=== PATIENT | female | born 1940 | race Caucasian/White ===

== ENCOUNTER 2018-12-03 18:06 | Emergency (ER) | payer SELFPAY ==
[2018-12-03 19:01] LABS: #Eosinphils 0.1 thou/uL (0.0-0.7); #Lymphocytes 1.3 thou/uL (1.20-3.40); #Monocytes 0.3 thou/uL (0.11-0.59); #Neutrophils 6.3 thou/uL (1.40-6.50); %Basophils 0.1 % (0.0-1.0); %Eosinophils 0.8 % (0.0-10.0); %Lymphocytes 16.1 % (21.0-51.0); %Monocytes 3.4 % (0.0-10.0); %Neutrophils 79.7 % (42.0-75.0); Hemoglobin 11.6 g/dL (12.0-16.0); Mean Corpuscular HGB CONC 33.2 g/dL (32.0-36.0); Mean Corpuscular Hemoglobin 26.4 pg (27.0-31.0); Mean Corpuscular Volume 79.7 fL (78.0-98.0); Mean Platelet Volume 7.9 fL (7.4-10.4); Platelet Count 250 thou/uL (130-400); RBC Distribution Width 13.1 % (11.5-14.5); Red Blood Cell (RBC) Count 4.39 mill/uL (4.20-5.40); White Blood Cell (WBC) Count 7.9 thou/uL (4.8-10.8)
[2018-12-03 19:12] LABS: ALT (SGPT) Less than 7 U/L (8-55); AST (SGOT) 9 U/L (5-34); Alkaline Phosphatase 96 U/L (40-150); Anion Gap 9 mmol/L (10-20); BUN (Urea Nitrogen) 10 mg/dL (9.8-20.1); Bilirubin, Total 0.4 mg/dL (0.2-1.2); CK (CPK) 32 U/L (29-168); Calc. Creatinine Clearance 0 mL/min (70-130); Calcium 9.3 mg/dL (7.8-10.44); Carbon Dioxide 30 mmol/L (23-31); Chloride 99 mmol/L (98-107); Estimated GFR-MDRD 78; Globulin 3.2 g/dL (2.4-3.5); Glucose 170 mg/dL (83-110); Lipase 22 U/L (8-78); Potassium 3.4 mmol/L (3.5-5.1); Protein, Total 7.2 g/dL (6.0-8.3); Sodium 135 mmol/L (136-145)
--- NOTE | 2018-12-08 12:00 | EKG ---
Test Reason : Blood Pressure : / mmHG Vent. Rate : 068 BPM Atrial Rate : 068 BPM P-R Int : 170 ms QRS Dur : 086 ms QT Int : 426 ms P-R-T Axes : 087 075 091 degrees QTc Int : 452 ms Normal sinus rhythm Normal ECG Confirmed by CYNDY HARPER, SINDHU ([id number]), film and video editor REANNA LOPEZ ([id number]) on 12/08/2018 12:00:06 PM Referred By: Confirmed By:SINDHU NAYLOR MD
== END 2018-12-03 19:39 | disposition home or self-care (01) ==
LOC: ERS 18:06
DX: I10 Essential (primary) hypertension (principal); E11.65 Type 2 diabetes mellitus with hyperglycemia; F17.210 Nicotine dependence, cigarettes, uncomplicated
CPT/HCPCS: 36415; 80053; 82550; 83690; 84484; 85025; 93005

== ENCOUNTER 2018-12-04 07:44 | Emergency (ER) | payer SELFPAY ==
[2018-12-04] MEDS ORDERED: Ondansetron PF 4 MG/2 ML Vial ONE ×3 (08:15→12:05)
[2018-12-04 08:24] LABS: #Lymphocytes 0.9 thou/uL (1.20-3.40); #Monocytes 0.2 thou/uL (0.11-0.59); #Neutrophils 8.6 thou/uL (1.40-6.50); %Basophils 0.4 % (0.0-1.0); %Eosinophils 0.4 % (0.0-10.0); %Lymphocytes 9.3 % (21.0-51.0); %Monocytes 1.9 % (0.0-10.0); Mean Corpuscular HGB CONC 33.4 g/dL (32.0-36.0); Mean Corpuscular Hemoglobin 26.3 pg (27.0-31.0); Mean Corpuscular Volume 78.8 fL (78.0-98.0); Mean Platelet Volume 8.7 fL (7.4-10.4); Platelet Count 294 thou/uL (130-400); RBC Distribution Width 13.3 % (11.5-14.5); Red Blood Cell (RBC) Count 5.32 mill/uL (4.20-5.40); White Blood Cell (WBC) Count 9.8 thou/uL (4.8-10.8)
--- NOTE | 2018-12-04 08:38 | RAD ---
FRONTAL VIEW CHEST: Date 12/04/18 No prior comparison. INDICATION: Dyspnea. FINDINGS: There is interstitial opacification of each lung without lobar consolidation or effusion. Cardiac lena houette is normal in size. There is vascular calcification. IMPRESSION: Interstitial lung disease, bilaterally, without superimposed focal consolidation. POS: C
[2018-12-04 08:54] LABS: ALT (SGPT) 8 U/L (8-55); AST (SGOT) 16 U/L (5-34); Albumin 4.8 g/dL (3.4-4.8); Alkaline Phosphatase 125 U/L (40-150); Anion Gap 16 mmol/L (10-20); BUN (Urea Nitrogen) 9 mg/dL (9.8-20.1); Bilirubin, Total 0.8 mg/dL (0.2-1.2); Calc. Creatinine Clearance 0 mL/min (70-130); Calcium 10.6 mg/dL (7.8-10.44); Carbon Dioxide 27 mmol/L (23-31); Chloride 96 mmol/L (98-107); Estimated GFR-MDRD 67; Globulin 4.5 g/dL (2.4-3.5); Glucose 276 mg/dL (83-110); Lipase 27 U/L (8-78); Potassium 3.7 mmol/L (3.5-5.1); Protein, Total 9.3 g/dL (6.0-8.3); Sodium 135 mmol/L (136-145)
[2018-12-04 12:00] LABS: Troponin I Less than 0.010 ng/mL (< 0.028)
[2018-12-04] MEDS ORDERED: Ketorolac Tromethamine 30 MG/ML VIAL ONE (12:04)
[2018-12-04] MEDS ORDERED: Promethazine HCl 25 MG/ML VIAL ONE (13:01)
[2018-12-04] MEDS ORDERED: Metoclopramide HCl 10 MG/2 ML VIAL ONE (13:01)
[2018-12-04] MEDS ORDERED: Metoclopramide HCl 10 MG TAB ONE (13:05)
--- NOTE | 2018-12-08 12:29 | EKG ---
Test Reason : SOB Blood Pressure : / mmHG Vent. Rate : 081 BPM Atrial Rate : 084 BPM P-R Int : 168 ms QRS Dur : 082 ms QT Int : 426 ms P-R-T Axes : 072 062 082 degrees QTc Int : 494 ms Normal sinus rhythm with sinus arrhythmia Prolonged QT Abnormal ECG #2 Confirmed by EDMOND BEARD DO ([id number]), food expeditor REANNA LOPEZ ([id number]) on 12/08/2018 12:29:12 PM Referred By: Confirmed By:EDMOND BEARD DO
--- NOTE | 2018-12-08 12:29 | EKG ---
Test Reason : SOB Blood Pressure : / mmHG Vent. Rate : 083 BPM Atrial Rate : 083 BPM P-R Int : 154 ms QRS Dur : 062 ms QT Int : 414 ms P-R-T Axes : 051 051 079 degrees QTc Int : 486 ms Normal sinus rhythm Nonspecific ST abnormality Abnormal ECG Confirmed by EDMOND BEARD DO ([id number]), editor book REANNA LOPEZ ([id number]) on 12/08/2018 12:28:41 PM Referred By: Confirmed By:EDMOND BEARD DO
== END 2018-12-04 14:00 | disposition home or self-care (01) ==
LOC: ERS 07:44
DX: R07.9 Chest pain, unspecified (principal); R11.2 Nausea with vomiting, unspecified; E11.9 Type 2 diabetes mellitus without complications; I10 Essential (primary) hypertension; F17.210 Nicotine dependence, cigarettes, uncomplicated
CPT/HCPCS: 36415; 71045; 80053; 83690; 84484; 85025; 93005; 96361; 96372; 96374; 96375; 96376; J1885; J2405; J2550; J2765; J8597

== ENCOUNTER 2018-12-04 19:28 | Emergency (ER) | payer SELFPAY ==
[2018-12-04 20:26] LABS: #Lymphocytes 1.1 thou/uL (1.20-3.40); #Monocytes 0.5 thou/uL (0.11-0.59); #Neutrophils 9.6 thou/uL (1.40-6.50); %Basophils 0.1 % (0.0-1.0); %Eosinophils 0.2 % (0.0-10.0); %Lymphocytes 9.9 % (21.0-51.0); %Monocytes 4.3 % (0.0-10.0); %Neutrophils 85.6 % (42.0-75.0); Mean Corpuscular HGB CONC 32.9 g/dL (32.0-36.0); Mean Corpuscular Hemoglobin 26.6 pg (27.0-31.0); Mean Platelet Volume 8.1 fL (7.4-10.4); Platelet Count 329 thou/uL (130-400); RBC Distribution Width 13.4 % (11.5-14.5); Red Blood Cell (RBC) Count 5.24 mill/uL (4.20-5.40); White Blood Cell (WBC) Count 11.2 thou/uL (4.8-10.8)
[2018-12-04 20:46] LABS: ALT (SGPT) 7 U/L (8-55); AST (SGOT) 19 U/L (5-34); Albumin 4.7 g/dL (3.4-4.8); Alkaline Phosphatase 115 U/L (40-150); Anion Gap 16 mmol/L (10-20); BUN (Urea Nitrogen) 14 mg/dL (9.8-20.1); Bilirubin, Total 0.8 mg/dL (0.2-1.2); Calc. Creatinine Clearance 0 mL/min (70-130); Calcium 10.3 mg/dL (7.8-10.44); Carbon Dioxide 28 mmol/L (23-31); Chloride 96 mmol/L (98-107); Estimated GFR-MDRD 55; Globulin 4.2 g/dL (2.4-3.5); Glucose 236 mg/dL (83-110); Lipase 34 U/L (8-78); Potassium 3.5 mmol/L (3.5-5.1); Protein, Total 8.9 g/dL (6.0-8.3); Sodium 136 mmol/L (136-145)
[2018-12-04] MEDS ORDERED: Ondansetron PF 4 MG/2 ML Vial ONE (22:02)
[2018-12-04] MEDS ORDERED: Ketorolac Tromethamine 30 MG/ML VIAL ONE (22:02)
[2018-12-04] MEDS ORDERED: Pantoprazole 40 MG VIAL ONE (22:02)
--- NOTE | 2018-12-04 22:13 | CT ---
CT Abdomen Pelvis W Con: 12/04/2018 9:36 PM CLINICAL INFORMATION: Nausea and vomiting hematemesis and abdominal pain for 4 days COMPARISON: None. TECHNIQUE: Multiple contiguous axial images were obtained and a CT of the abdomen and pelvis with IV contrast. C oronal and sagittal reformats were performed. FINDINGS: Lower Chest: within normal limits. Abdomen: Liver: within normal limits. Bile Ducts: Normal caliber. Gallbladder: Absent Pancreas: within normal limits. Spleen: within normal limits. Adrenals: within normal limits. Kidneys: within normal limits. Pelvis: Reproductive Organs: Appears to be status post hysterectomy. Ureters: within normal limits. Bladder: within normal limits. Peritoneum: No ascites or free air, no fluid collection. Bowel: Normal caliber. Mesentery and Retroperitoneum: No enlarged mesenteric or retroperitoneal lymph nodes. Vessels: Atherosclerotic calcifications. Abdominal Wall: within normal limits. Bones: Degenerative changes in the spine. The patient has a right hip prosthesis which produces strea k artifact limiting evaluation of the pelvis. IMPRESSION: No evidence of acute intraabdominal or pelvic abnormality.
--- NOTE | 2018-12-04 22:18 | RAD ---
EXAM: Single view of the chest HISTORY: Vomiting COMPARISON: 12/04/2018 at 10:43 AM FINDINGS: Single view of the chest shows a normal sized cardiomediastinal silhouette. Increased inte rstitial markings are present. There is no evidence of consolidation, mass, or pleural effusion. Degenerative changes and postsurgical changes are seen in the spine. IMPRESSION: No evidence of acute cardiopulmonary disease
--- NOTE | 2018-12-08 13:55 | EKG ---
Test Reason : Blood Pressure : / mmHG Vent. Rate : 076 BPM Atrial Rate : 076 BPM P-R Int : 166 ms QRS Dur : 086 ms QT Int : 426 ms P-R-T Axes : 083 040 076 degrees QTc Int : 479 ms Normal sinus rhythm Normal ECG Confirmed by ASHLEY GORE MD ([id number]), supervising film or videotape editor REANNA LOPEZ ([id number]) on 12/08/2018 1:54:32 PM Referred By: Confirmed By:ASHLEY GORE MD
== END 2018-12-04 23:30 | disposition home or self-care (01) ==
LOC: ERS 19:28
DX: R11.2 Nausea with vomiting, unspecified (principal); R10.9 Unspecified abdominal pain; E11.9 Type 2 diabetes mellitus without complications; I10 Essential (primary) hypertension; F17.210 Nicotine dependence, cigarettes, uncomplicated; K03.81 Cracked tooth; K02.9 Dental caries, unspecified; Z71.6 Tobacco abuse counseling; Z79.899 Other long term (current) drug therapy
CPT/HCPCS: 36416; 71045; 74177; 82274; 83690; 93005; 96365; 96375; C9113; J1885; J2405

== ENCOUNTER 2018-12-05 07:48 | Emergency (ER) | payer SELFPAY ==
[2018-12-05 08:53] LABS: Anion Gap 15 mmol/L (10-20); BUN (Urea Nitrogen) 17 mg/dL (9.8-20.1); Calc. Creatinine Clearance 0 mL/min (70-130); Calcium 9.2 mg/dL (7.8-10.44); Carbon Dioxide 19 mmol/L (23-31); Chloride 100 mmol/L (98-107); Estimated GFR-MDRD 62; Glucose 299 mg/dL (83-110); Sodium 130 mmol/L (136-145)
== END 2018-12-05 09:12 | disposition home or self-care (01) ==
LOC: ERS 07:48
DX: E11.65 Type 2 diabetes mellitus with hyperglycemia (principal); I10 Essential (primary) hypertension; Z79.4 Long term (current) use of insulin; F17.210 Nicotine dependence, cigarettes, uncomplicated; Z79.899 Other long term (current) drug therapy; Z79.891 Long term (current) use of opiate analgesic
CPT/HCPCS: 36415; 36416; 80048; 99284

== ENCOUNTER 2018-12-08 12:10 | Observation (INO) | payer SELFPAY ==
[2018-12-08] MEDS ORDERED: Dextrose 50% Abboject 50 ML SYRINGE ONE (12:16)
[2018-12-08] MEDS ORDERED: Octreotide Acetate 50 MCG/ML AMP ONE (12:20)
[2018-12-08 12:41] LABS: #Eosinphils 0.1 thou/uL (0.0-0.7); #Lymphocytes 1.5 thou/uL (1.20-3.40); #Monocytes 0.4 thou/uL (0.11-0.59); #Neutrophils 4.8 thou/uL (1.40-6.50); %Basophils 0.1 % (0.0-1.0); %Eosinophils 1.5 % (0.0-10.0); %Lymphocytes 22.1 % (21.0-51.0); %Monocytes 5.7 % (0.0-10.0); %Neutrophils 70.5 % (42.0-75.0); Hemoglobin 11.8 g/dL (12.0-16.0); Mean Corpuscular HGB CONC 33.1 g/dL (32.0-36.0); Mean Corpuscular Hemoglobin 26.5 pg (27.0-31.0); Mean Corpuscular Volume 80.2 fL (78.0-98.0); Mean Platelet Volume 7.9 fL (7.4-10.4); Platelet Count 301 thou/uL (130-400); RBC Distribution Width 13.6 % (11.5-14.5); Red Blood Cell (RBC) Count 4.44 mill/uL (4.20-5.40); White Blood Cell (WBC) Count 6.7 thou/uL (4.8-10.8)
[2018-12-08] MEDS ORDERED: Sodium Chloride 77 MEQ in Dextrose 10% in Water 1,000 ML IV SCH (12:45)
--- NOTE | 2018-12-08 12:59 | RAD ---
EXAM: Portable chest PROVIDED CLINICAL HISTORY: Altered mental status COMPARISON: 12/04/2018 FINDINGS: Cardiac and mediastinal silhouette is within normal limits. No focal consolidation, pleural fluid or pneumothorax evident. IMPRESSION: No evidence for an acute cardiopulmonary process.
[2018-12-08 13:05] LABS: ALT (SGPT) 7 U/L (8-55); AST (SGOT) 13 U/L (5-34); Albumin 4.1 g/dL (3.4-4.8); Alkaline Phosphatase 95 U/L (40-150); Anion Gap 11 mmol/L (10-20); BUN (Urea Nitrogen) 13 mg/dL (9.8-20.1); Bilirubin, Total 0.4 mg/dL (0.2-1.2); CK (CPK) 60 U/L (29-168); Calc. Creatinine Clearance 0 mL/min (70-130); Carbon Dioxide 28 mmol/L (23-31); Chloride 98 mmol/L (98-107); Estimated GFR-MDRD 71; Globulin 2.7 g/dL (2.4-3.5); Glucose 175 mg/dL (83-110); Lipase 31 U/L (8-78); Protein, Total 6.8 g/dL (6.0-8.3); Sodium 134 mmol/L (136-145)
[2018-12-08] MEDS ORDERED: Potassium Chloride 20 MEQ TAB ONE (13:19)
[2018-12-08 14:44] LABS: Bilirubin Negative (Negative); Blood, Urine Negative (Negative); Clarity Clear (Clear); Glucose, Urine (Dipstick) Normal (Negative); Leukocyte Negative Leu/uL (Negative); Nitrite Negative (Negative); Protein, Urine (Dipstick) Negative (Neg-Trace); Urobilinogen Normal mg/dL (Less than 2)
[2018-12-08] MEDS ORDERED: Ondansetron PF 4 MG/2 ML Vial IVP PRN ×2 (15:26→16:02)
[2018-12-08] MEDS ORDERED: Ondansetron ODT 4 MG TAB SL PRN (15:26)
--- NOTE | 2018-12-08 15:26 | HP ---
PRIMARY CARE PHYSICIAN: [facility]. REASON FOR ADMISSION: Hypoglycemia. HISTORY OF PRESENT ILLNESS: This is a 78-year-old female, who has chronic low back pain; hypertension; diabetes, type 2; dyslipidemia; and gastroesophageal reflux disease with peptic ulcer disease, who lives at [facility]. The patient was found with urine drugs positive for opiates, and the patient attributes that her pain specialist prescribed opioids for her chronic low back pain. She does not have any abuse of opioids, but somehow the patient is now a resident of [facility] for that problem. At [facility], medication is given under supervision. She is on oral hypoglycemic agent as well as insulin. The patient reports that at [facility], she does not eat well enough as well. This morning, she was given 45 units of insulin and she did not eat well enough and that has lead to her low blood sugar and that is why the patient was brought to emergency room today. few days, the patient had several recurrent admissions in the emergency room for hypoglycemia and that is why we decided to keep this patient in the hospital for observation. In the emergency room, when she presented at that time, her blood pressure was 223/99. Subsequently, blood pressure improved to 155/83. She is getting dextrose 10% with half-normal saline solution. The patient is also given potassium chloride. She was treated with D50 and octreotide IM one time dose. When I saw at that time, the patient was alert, awake, able to provide history. She does not have any focal neurological deficit. She denies any fever, chills, UTI symptoms, constipation, diarrhea, melena, or hematochezia. REVIEW OF SYSTEMS: CONSTITUTIONAL: Negative for weight loss or gain, ability to conduct usual activities. SKIN: Negative for rash, itching. EYES: Negative for double vision, pain. ENT/MOUTH: Negative for nose bleeding, neck stiffness, pain, tenderness. CARDIOVASCULAR: Negative for palpitations, dyspnea on exertion, orthopnea. RESPIRATORY: Negative for shortness of breath, wheezing, cough, hemoptysis, fever or night sweats. GASTROINTESTINAL: Negative for poor appetite, abdominal pain, heartburn, nausea , vomiting, constipation, or diarrhea. GENITOURINARY: Negative for urgency, frequency, dysuria, nocturia. MUSCULOSKELETAL: Negative for pain, swelling. NEUROLOGIC/PSYCHIATRIC: Negative for anxiety, depression. ALLERGY/IMMUNOLOGIC: Negative for skin rash, bleeding tendency. Please see my HPI for pertinent positives and negatives. All other review of systems reviewed and negative except as mentioned in the HPI. PAST MEDICAL HISTORY: Diabetes, type 2; hypertension; dyslipidemia; gastroesophageal reflux disease; history of peptic ulcer disease; and chronic low back pain. PAST SURGICAL HISTORY: Hysterectomy, colon resection, back and neck surgery, hand surgery, ? cardiac catheterization with stent placement. PAST PSYCHIATRIC HISTORY: Anxiety and depression. SOCIAL HISTORY: The patient has a history of smoking. She lives in a skilled nursing currently at [facility]. She smokes about 1 pack per day. She denies any alcohol abuse. She denies any other illicit drug abuse. FAMILY HISTORY: Positive for hypertension and diabetes among several family members. CURRENT HOME MEDICATIONS: 1. Zofran p.r.n. basis. 2. Phenergan p.r.n. basis. 3. Coreg 25 mg daily. 4. Lipitor 40 mg daily. 5. Protonix 40 mg daily. 6. Glipizide 5 mg daily. 7. Metformin 500 mg twice daily. 8. Bentyl 10 mg q.6 hourly p.r.n. 9. Insulin 45 units subcu daily. EMERGENCY ROOM COURSE: The patient has received potassium chloride, D10 half- normal saline, 1 L IV fluid, octreotide 25 mcg, and dextrose 50% in water. ALLERGY: NKDA PHYSICAL EXAMINATION: GENERAL: The patient is currently alert, awake, chronically ill, no obvious acute distress. HEENT: Head, normocephalic and atraumatic. Eyes; pupils round and reactive to light. Extraocular muscle intact. ENT, oropharynx within normal limit. Moist mucous membranes. No oral lesion. No pharyngeal erythema. No exudate. NECK: Supple. No JVD. No thyromegaly. No carotid bruit. No jugular venous distention. LUNGS: Clear to auscultation without any rhonchi or rales. CARDIAC: S1 and S2 regular without any murmur. No gallop. No rub. ABDOMEN: Soft. Bowel sounds present. Nontender. Nondistended. No organomegaly. No mass. No suprapubic tenderness. BACK: Examination unremarkable. No CVA tenderness. EXTREMITIES: Upper extremities, passive movement of all joints are normal. Lower extremity, no edema. Good distal pulsation. SKIN: No skin rash. HEMATOLOGICAL SYSTEM: No lymphadenopathy. NEUROLOGIC: Nonfocal examination. IMAGING STUDIES: Telemetry showing sinus rhythm with heart rate of 55 to 60. Chest x-ray based on my review, no acute cardiopulmonary process. LABORATORY DATA: CBC; WBC 6.7, hemoglobin 11.8, and platelets 301. BMP; sodium 134, potassium 3.0, chloride 98, carbon dioxide 28, BUN 13, creatinine 0.79, glucose 175, and calcium 9.0. LFT; AST 13, ALT 7, alkaline phosphatase 95, and albumin 4.1. Troponin less than 0.018. Lipase 31. Glucose on admission 36 and then 106 and 80. Serum ketones 0.08. ASSESSMENT AND PLAN: 1. Hypoglycemia associated with diabetes type 2. At this point, multifactorial etiology contributing to her hypoglycemia given poor p.o. intake as well as oral diabetic medication and insulin contributed to her hypoglycemia. This patient is at risk for recurrent hypoglycemia and that is why we will keep her in the hospital for observation. We will continue with D10 at 75 mL/h. Whenever blood sugar was appropriately high level, then we will discontinue D10 drip and continue with insulin as per sliding scale per protocol. Diabetic diet will be given. We will adjust medication while in the hospital. 2. Hyponatremia and hypokalemia. The patient will be given IV fluid and we will repeat BMP tomorrow. Potassium already replaced in the emergency room. 3. Hypertension with hypertensive urgency. We will resume Coreg 12.5 mg twice daily along with hydralazine p.r.n. basis. 4. Tobacco abuse disorder. Smoking cessation counseling given. We will provide nicotine patch if needed. 5. Chronic low back pain. We will continue to control her pain with Toradol p.r.n. basis. 6. Dyslipidemia. We will continue Lipitor 40 mg p.o. at bedtime. 7. History of gastroesophageal reflux disease and peptic ulcer disease. Continue Protonix 40 mg p.o. daily. 8. Deep venous thrombosis prophylaxis. SCD boots. No Lovenox because of low risk. 9. Gastrointestinal prophylaxis. Protonix 40 mg p.o. daily. CODE STATUS: The patient is a full code. DISPOSITION PLAN: Based on clinical course, likely 24 to 48 hours. Plan of care discussed with the patient. Job ID: [id number] [facility]
[2018-12-08] MEDS ORDERED: Sodium Chloride 77 MEQ, Potassium Chloride 20 MEQ in Dextrose 10% in Water 1,000 ML IV SCH (15:30)
[2018-12-08] MEDS ORDERED: Loperamide HCl 2 MG CAP PO PRN (16:02)
[2018-12-08] MEDS ORDERED: HumaLOG 300 UNITS/3 ML VIAL SC PRN (16:02)
[2018-12-08] MEDS ORDERED: Loratadine 10 MG TAB PO PRN (16:02)
[2018-12-08] MEDS ORDERED: Artificial Tears 18 DROP/0.9 ML EA EYE PRN (16:02)
[2018-12-08] MEDS ORDERED: Senokot S 8.6-50 MG TAB PO PRN (16:02)
[2018-12-08] MEDS ORDERED: Dextrose 5% in Water 1,000 ML IV PRN (16:02)
[2018-12-08] MEDS ORDERED: Ketorolac Tromethamine 30 MG/ML VIAL IVP PRN (16:02)
[2018-12-08] MEDS ORDERED: Diabetic Tussin 200 MG/10 ML UDCUP PO PRN (16:02)
[2018-12-08] MEDS ORDERED: hydrALAZINE 20 MG/ML VIAL SLOW IVP PRN (16:02)
[2018-12-08] MEDS ORDERED: Dextrose 50% Abboject 50 ML SYRINGE SLOW IVP PRN (16:02)
[2018-12-08] MEDS ORDERED: Cepastat Lozenges 1 LOZ PO PRN (16:02)
[2018-12-08] MEDS ORDERED: Calcium Carbonate 500 MG ChewTAB PO PRN (16:02)
[2018-12-08] MEDS ORDERED: Zolpidem Tartrate 5 MG TAB PO PRN (16:02)
[2018-12-08] MEDS ORDERED: Nicotine 21 MG PATCH TD PRN (16:02)
[2018-12-08] MEDS ORDERED: Sodium Chloride 0.65% Nasal 44 ML BOT EA NARE PRN (16:02)
[2018-12-08] MEDS ORDERED: Bisacodyl 10 MG SUPP PR PRN (16:02)
[2018-12-08] MEDS ORDERED: Ondansetron ODT 4 MG TAB PO PRN (16:02)
[2018-12-08 16:03] VITALS: BMI 20.9
[2018-12-08] MEDS: Carvedilol 6.25 MG TAB PO SCH (17:54)
[2018-12-08] MEDS: Dextrose 10% in Water 1,000 ML IV SCH (17:55)
[2018-12-08] MEDS: Acetaminophen 325 MG TAB PO PRN (20:09)
[2018-12-08] MEDS ORDERED: Atorvastatin Calcium 40 MG TAB PO SCH (21:00)
[2018-12-09] MEDS: Acetaminophen 325 MG TAB PO PRN (04:02)
[2018-12-09] MEDS: Dextrose 10% in Water 1,000 ML IV SCH (04:02)
[2018-12-09 05:01] LABS: #Eosinphils 0.1 thou/uL (0.0-0.7); #Lymphocytes 1.6 thou/uL (1.20-3.40); #Monocytes 0.4 thou/uL (0.11-0.59); #Neutrophils 4.6 thou/uL (1.40-6.50); %Basophils 0.3 % (0.0-1.0); %Eosinophils 2.2 % (0.0-10.0); %Lymphocytes 23.9 % (21.0-51.0); %Neutrophils 67.7 % (42.0-75.0); Hemoglobin 10.7 g/dL (12.0-16.0); Mean Corpuscular HGB CONC 33.1 g/dL (32.0-36.0); Mean Corpuscular Hemoglobin 26.9 pg (27.0-31.0); Mean Corpuscular Volume 81.5 fL (78.0-98.0); Mean Platelet Volume 8.4 fL (7.4-10.4); Platelet Count 257 thou/uL (130-400); RBC Distribution Width 13.7 % (11.5-14.5); Red Blood Cell (RBC) Count 3.96 mill/uL (4.20-5.40); White Blood Cell (WBC) Count 6.8 thou/uL (4.8-10.8)
[2018-12-09 05:28] LABS: Anion Gap 12 mmol/L (10-20); BUN (Urea Nitrogen) 11 mg/dL (9.8-20.1); Calc. Creatinine Clearance 49 mL/min (70-130); Calcium 8.6 mg/dL (7.8-10.44); Carbon Dioxide 24 mmol/L (23-31); Chloride 102 mmol/L (98-107); Estimated GFR-MDRD 67; Glucose 305 mg/dL (83-110); Potassium 3.6 mmol/L (3.5-5.1); Sodium 134 mmol/L (136-145)
[2018-12-09] MEDS: HumaLOG 300 UNITS/3 ML VIAL SC PRN ×2 (06:13→12:08)
[2018-12-09 07:09] VITALS: TEMP 98.2
[2018-12-09] MEDS: Carvedilol 6.25 MG TAB PO SCH (08:33)
[2018-12-09] MEDS ORDERED: Enoxaparin Sodium 40 MG/0.4 ML SYRINGE SC SCH (09:00)
--- NOTE | 2018-12-09 10:06 | PDOC.HOSPP ---
- Subjective Encounter Date: 12/09/18 Encounter Time: 08:50 Subjective: Patient seen and examined. No new complaints. No overnight events - Objective Vital Signs & Weight: Vital Signs (12 hours) Temp Pulse Resp BP Pulse Ox 12/09/18 07:04 98.2 F 75 17 168/76 H 99 12/09/18 04:04 98.3 F 72 18 145/78 H 96 12/08/18 23:45 98.2 F 83 18 127/65 99 Weight Weight 118 lb Result Diagrams: 12/09/18 04:30 12/09/18 04:30 Additional Labs: Accuchecks 12/08/18 12/08/18 12/08/18 20:00 16:06 14:23 POC Glucose 129 H 76 80 12/08/18 12/08/18 13:06 12:17 POC Glucose 106 36 L* Hospitalist ROS - Review of Systems ENT: denies: ear pain, ear discharge, nose pain, nose discharge, nose congestion , mouth pain, mouth swelling, throat pain, throat swelling, other Respiratory: denies: cough, dry, shortness of breath, hemoptysis, SOB with excertion, pleuritic pain, sputum, wheezing, other Cardiovascular: denies: chest pain, palpitations, orthopnea, paroxysmal noc. dyspnea, edema, light headedness, other Gastrointestinal: denies: nausea, vomiting, abdominal pain, diarrhea, constipation, melena, hematochezia, other Genitourinary: denies: dysuria, frequency, incontinence, hematuria, retention, other Musculoskeletal: denies: neck pain, shoulder pain, arm pain, back pain, hand pain, leg pain, foot pain, other Skin: denies: rash, lesions, blayne, bruising, other - Medication Medications: Active Medications Generic Name Dose Route Start Last Admin Trade Name Freq PRN Reason Stop Dose Admin Acetaminophen 650 mg 12/08/18 16:02 12/09/18 04:02 Tylenol PO 650 mg Q4H PRN Administration Headache/Fever/Mild Pain (1-3) Atorvastatin Calcium 40 mg 12/08/18 21:00 12/08/18 20:09 Lipitor PO 40 mg HS GLYNN Administration Carvedilol 12.5 mg 12/08/18 17:00 12/09/18 08:33 Coreg PO 12.5 mg BID-WM GLYNN Administration Enoxaparin Sodium 40 mg 12/09/18 09:00 12/09/18 08:36 Lovenox SC Not Given 0900 [facility] Dextrose/Water 1,000 mls @ 75 mls/hr 12/08/18 16:02 12/09/18 04:02 Dextrose 10% In Water IV 1,000 mls .[id number] GLYNN Administration Insulin Human Lispro 0 units 12/08/18 16:02 12/09/18 06:13 Humalog SC 4 unit .MILD SLIDING SCALE PRN Administration Mild Correctional Scale Pantoprazole Sodium 40 mg 12/09/18 09:00 12/09/18 08:33 Protonix PO 40 mg DAILY GLYNN Administration - Exam General Appearance: NAD, awake alert Eye: PERRL, anicteric sclera ENT: normocephalic atraumatic, no oropharyngeal lesions Neck: supple, symmetric, no JVD, no thyromegaly Heart: RRR, no murmur, no gallops, no rubs Respiratory: CTAB, no wheezes, no rales, no ronchi Gastrointestinal: soft, non-tender, non-distended, normal bowel sounds Extremities: no cyanosis, no clubbing, no edema Skin: normal turgor, no lesions, no rashes Neurological: cranial nerve grossly intact, normal sensation to touch, no weakness, no focal deficits Musculoskeletal: normal tone, normal strength Psychiatric: normal affect, normal behavior, A&O x 3 Hosp A/P (1) Hypoglycemia due to type 2 diabetes mellitus Code(s): E11.649 - TYPE 2 DIABETES MELLITUS WITH HYPOGLYCEMIA WITHOUT COMA Status: Acute (2) Anxiety and depression Code(s): F41.9 - ANXIETY DISORDER, UNSPECIFIED; F32.9 - MAJOR DEPRESSIVE DISORDER, SINGLE EPISODE, UNSPECIFIED Status: Chronic (3) CAD (coronary artery disease) Code(s): I25.10 - ATHSCL HEART DISEASE OF [place] CORONARY ARTERY W/O ANG PCTRS Status: Chronic (4) Diabetes type 2, controlled Code(s): E11.9 - TYPE 2 DIABETES MELLITUS WITHOUT COMPLICATIONS Status: Chronic (5) Dyslipidemia Code(s): E78.5 - HYPERLIPIDEMIA, UNSPECIFIED Status: Chronic (6) GERD (gastroesophageal reflux disease) Code(s): K21.9 - GASTRO-ESOPHAGEAL REFLUX DISEASE WITHOUT ESOPHAGITIS Status: Chronic (7) Hypertension Code(s): I10 - ESSENTIAL (PRIMARY) HYPERTENSION Status: Chronic (8) Seizure disorder Code(s): G40.909 - EPILEPSY, UNSP, NOT INTRACTABLE, WITHOUT STATUS EPILEPTICUS Status: Chronic (9) Tobacco abuse Code(s): Z72.0 - TOBACCO USE Status: Chronic - Plan old records reviewed/req reduce her dose of insulin see discharge jed
--- NOTE | 2018-12-09 11:13 | DIS ---
DATE OF ADMISSION: 12/08/2018 DATE OF DISCHARGE: 12/09/2018 PRIMARY CARE PHYSICIAN: [facility] Call admission. DISCHARGE DISPOSITION: [facility]. PRIMARY DISCHARGE DIAGNOSIS: Hypoglycemia due to diabetes, type 2. SECONDARY DISCHARGE DIAGNOSES: Tobacco abuse disorder; seizure disorder; hypertension; gastroesophageal reflux disease; peptic ulcer disease; diabetes, type 2; coronary artery disease; anxiety; and depression. PRIMARY PROCEDURE/OPERATION: None. RADIOLOGICAL INVESTIGATION: Chest x-ray, normal. SIGNIFICANT LABORATORY DATA: Hemoglobin 10.7, creatinine 0.83. LFT, normal. DISCHARGE MEDICATIONS: 1. ProAir HFA 2 puffs q.4 hourly p.r.n. 2. Lipitor 40 mg p.o. daily. 3. Coreg 25 mg b.i.d. 4. Plavix 75 mg daily. 5. Flonase nasal spray daily. 6. Remeron 15 mg p.o. at bedtime. 7. Protonix 40 mg daily. 8. Dilantin 100 mg p.o. b.i.d. 9. Ranitidine 150 mg b.i.d. 10. Sucralfate 1 g p.o. a.c. and at bedtime. 11. NPH insulin 20 units subcutaneously b.i.d., dose reduced. CONTRAINDICATION: None. CODE STATUS: Full code. INPATIENT CRIMPING MACHINE OPERATOR: None. ALLERGIES: NO KNOWN DRUG ALLERGIES. DISCHARGE PLAN: Posthospital, the patient will be going to [facility]. HOSPITAL COURSE: A 78-year-old female, who had recurrent emergency room visit for hypoglycemia. The patient was not eating well enough, and she was taking 45 units of Novolin insulin twice daily that contributed to her hypoglycemia. During this admission, we kept her in the hospital, and we treated her with dextrose 10% solution. She had hypokalemia that was also replaced while in hospital. We provided the patient education about how to prevent hypoglycemia, and during this admission, we reduced dose of Novolin N 70/30 to 20 units subcutaneously b.i.d. The patient is seen and examined at bedside today. Her hypoglycemia has resolved. The patient is medically stable for discharge today. Please see my progress note from today for further detail. Job ID: [id number]
[2018-12-09 11:34] VITALS: BP 148/80
== END 2018-12-09 15:11 | disposition home or self-care (01) ==
LOC: ERS 12:10 → T4-A 14:10
PROVIDERS: ADMIT Internal Medicine; ATTEND Internal Medicine
DX: E11.649 Type 2 diabetes mellitus with hypoglycemia without coma (principal); F17.210 Nicotine dependence, cigarettes, uncomplicated; G40.909 Epilepsy, unspecified, not intractable, without status epilepticus; I10 Essential (primary) hypertension; I16.0 Hypertensive urgency; K21.9 Gastro-esophageal reflux disease without esophagitis; I25.10 Atherosclerotic heart disease of native coronary artery without angina pectoris; F41.9 Anxiety disorder, unspecified; F32.9 Major depressive disorder, single episode, unspecified; E78.5 Hyperlipidemia, unspecified; G89.29 Other chronic pain; M54.5 Low back pain; E87.1 Hypo-osmolality and hyponatremia; E87.6 Hypokalemia; Z87.11 Personal history of peptic ulcer disease; Z79.02 Long term (current) use of antithrombotics/antiplatelets; Z79.4 Long term (current) use of insulin; Z79.899 Other long term (current) drug therapy; Z95.5 Presence of coronary angioplasty implant and graft; Z90.49 Acquired absence of other specified parts of digestive tract
CPT/HCPCS: 36415; 36416; 71045; 80048; 80053; 81003; 82010; 82550; 83690; 84484; 85025; 96361; 96372; 96374; G0378; J1650; J2354